=== PATIENT | male | born 1990 | race Caucasian/White ===

== ENCOUNTER 2017-06-08 20:17 | Emergency (ER) | payer SELFPAY | END 2017-06-08 20:35 | disposition left against medical advice (07) | LOC: UCCORT 20:17 | DX: J02.9 Acute pharyngitis, unspecified (principal); Z53.21 Procedure and treatment not carried out due to patient leaving prior to being seen by health care provider ==

== ENCOUNTER 2019-05-31 12:23 | Emergency (ER) | payer OTHER ==
--- OUTSIDE RECORDS SUMMARY | 2019-05-31 12:54 | XMS REPORT | Continuity of Care Document ---
:1990 External Reference #:[id number] Author Name Franchesca Johnson FNP Address [address] [place] [id number] Care Team Providers Name Role Phone Franchesca Johnson [employer] - Nurse Care Team Information Roller Pneumatic [phone] Practitioner Problems Active Problems Provider Date Essential hypertension Lu Schultz M.D. 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 Has never quit in the past Smoking Status Reviewed: 05/27/19 Heavy tobacco smoker (more started smoking age 15 - than 10 cigarettes/day) currently 3/4 PPD. Has never quit in the past Allergies, Adverse Reactions, Alerts Active Allergies Reaction Severity Comments Date Lamotrigine Headache Mild 01/29/2018 Inactive Allergies NKDA 01/04/2015 Medications Active Medications SIG Qnty Indications Ordering Provider Date Adderall one by mouth twice 60tabs F90.0 Elizabeth, 01/29/2018 10mg Tablets a day mdd#2 Franchesca, Reference #: NICA [id number] keep appt 05/27/19 please Lisinopril take one tablet by 90tabs I10 Elizabeth, 12/14/2014 20mg mouth every day Cas Sorensen Medications Administered in Office Medication SIG Qnty Indications Ordering Provider Date PPD Franchesca Johnson FNP 05/27/2019 Injection History of Mumps infection Franchesca Johnson FNP 07/08/2017 Injection Immunizations CPT Code Status Date Vaccine Lot # [id number] Given 06/18/2017 MMR Vaccine, Live, For Subcutaneous Use 26553 Given 06/17/2017 MMR Vaccine, Live, For Subcutaneous Use 07997 Given 04/14/2014 Tdap injection 17793 Given 07/23/2013 flu vaccination Vital Signs Date Vital Result Comment 05/27/2019 3:12pm BP Systolic 166 mmHg BP Diastolic 88 mmHg Body Temperature 98.4 F Heart Rate 108 /min Respiratory Rate 17 /min Height 70.15 inches 5'10.15" Weight 213.00 lb BMI (Body Mass Index) 30.4 kg/m2 BSA (Body Surface Area) 2.15 m2 [place] body weight in kilograms 76 kg O2 % BldC Oximetry 97 % 09/12/2018 11:09am BP Systolic 128 mmHg BP Diastolic 86 mmHg Body Temperature 97.8 F Heart Rate 81 /min Height 71 inches 5'11" Weight 212.25 lb BMI (Body Mass Index) 29.6 kg/m2 BSA (Body Surface Area) 2.16 m2 [place] body weight in kilograms 78 kg O2 % BldC Oximetry 98 % Pain Level 0 Results Description No Information Available Procedures Description No Information Available Medical Devices Description No Information Available Encounters Type Date Location Provider Dx Diagnosis Office Visit 05/27/2019 Family Medicine Elizabeth, Z00.00 Encntr for general 3:[address] Franchesca adult medical exam [employer] w/o abnormal findings I10 Essential (primary) hypertension F90.0 Attn-defct hyperactivity disorder, predom inattentive type Z11.3 Encntr screen for infections w sexl mode of transmiss Assessments Date Code Description Provider 05/27/2019 Z00.00 Encounter for general adult medical Franchesca Johnson FNP examination without abnormal findings 05/27/2019 I10 Essential (primary) hypertension Nai JohnsonNICA diego 05/27/2019 F90.0 Attention-deficit hyperactivity disorder, Franchesca Johnson FNP predominantly inat 05/27/2019 Z11.3 Encounter for screening for infections Nai Johnsonbrandie NICA with a predominantly sexual mode of transmission Plan of Treatment Future Appointment(s):06/26/2019 3:00 pm - Elizabeth NICA Sorensen at [facility]05/29/2019 4:00 pm - Family Nurse at [facility]11/2018 - Franchesca Johnson PEEHowardZ00.00 Encounter for general adult medical examination without abnormal findingsComments:Will need to bet Hepatitis B imms from SchoolPPD placed todayUp to date for vision and dental - recommend continued cleanings every 6 months for dental and Vision exams every 2 yearsDiscussed healthy diet - continue to look for ways to get adequate fruits and vegetables in dietExercise - 150 active minutes a week is recommended for heart health -Follow up:nurse visit 2 days for PDD reading - forms to be done at that time flu shot at pharmacy or make apptfro 2-3 weeks to getI10 Essential (primary) hypertensionComments:not well controlled today - need to take medication regularlyWill have recheck 4-6 weeks and then determine if meds needto be changed or added toFollow up:4 weeks recheck HTNF90.0 Attention- deficit hyperactivity disorder, predominantly inatComments:Stable on current BID dosing of Adderall Random UDT ordered musbfH71.3 Encounter for screening for infections with a predominantly sexual mode of transmissionNew Labs:HIV 1/2 Ag & Abs 4TH Gen W/RFL, Ordered: 05/27/19Urine Chlam/GC/Trichomonas PCR, Ordered: 05/27/19HSV 1/2 Igg/Igm W/RFX, Ordered: 05/27/19Treponema Igg/Igm, Ordered: 05/27/19 Functional Status Functional Condition Comment Date Status None Active Mental Status Description No Information Available Referrals Description No Information Available
[2019-05-31 13:36] VITALS: BP 158/101
--- NOTE | 2019-05-31 14:13 | UC ---
Throat Pain/Nasal Shaka HPI - HPI Summary HPI Summary: Pt presents with c/o left side neck swelling and pain. Pt thinks he has a swollen lymph node. He is concerned that he may have the mumps and he had them last year. - History of Current Complaint Chief Complaint: UCGeneralIllness Stated Complaint: SWOLLEN LYMPH NODE Time Seen by Provider: 05/31/19 14:04 Hx Obtained From: Patient Onset/Duration: Sudden Onset - began this morning, Still Present Severity: Moderate Pain Intensity: 5 Cough: None Associated Signs & Symptoms: Positive: Negative - Epiglottits Risk Factors Epiglottis Risk Factors: Sudden Onset - Allergies/Home Medications Allergies/Adverse Reactions: Allergies Allergy/AdvReac Type Severity Reaction Status Date / Time No Known Allergies Allergy Verified 02/13/14 11:51 Home Medications: Home Medications Dextroamphetamine/Amphetamine [Dextroamp-Amphetamin 10 mg Tab] 10 mg PO DAILY [History Confirmed 05/31/19] Lisinopril TAB* [Prinivil TAB 10 MG*] 10 mg PO DAILY 05/31/19 [History Confirmed 05/31/19] PMH/Surg Hx/FS Hx/Imm Hx Previously Healthy: Yes - Surgical History Surgical History: Yes Surgery Procedure, Year, and Place: PYLORIC STEONSIS REPAIR, T&A - Family History Known Family History: Positive: Cardiac Disease - Social History Occupation: Student Lives: With Family Alcohol Use: None Substance Use Type: None Smoking Status (MU): Light Every Day Tobacco Smoker Type: Cigarettes Amount Used/How Often: 1/2 PPD Have You Smoked in the Last Year: Yes - Immunization History Most Recent Influenza Vaccination: FALL 2012 Vaccination Up to Date: Yes Review of Systems All Other Systems Reviewed And Are Negative: Yes Constitutional: Positive: Negative Skin: Positive: Negative Eyes: Positive: Negative ENT: Positive: Sore Throat - mild Respiratory: Positive: Negative Cardiovascular: Positive: Negative Gastrointestinal: Positive: Negative Genitourinary: Positive: Negative Motor: Positive: Negative Neurovascular: Positive: Negative Musculoskeletal: Positive: Myalgia Neurological: Positive: Negative Psychological: Positive: Negative Is Patient Immunocompromised?: No Physical Exam Triage Information Reviewed: Yes Appearance: Well-Appearing Vital Signs: Initial Vital Signs Temp 98.4 F 05/31/19 13:29 Pulse 77 05/31/19 13:29 Resp 16 05/31/19 13:29 BP 158/101 05/31/19 13:29 Pulse Ox 100 05/31/19 13:29 Vital Signs Reviewed: Yes Eye Exam: Normal ENT Exam: Normal ENT: Positive: Normal ENT inspection Dental Exam: Normal Neck: Positive: Enlarged Nodes @ - left submandibular Respiratory Exam: Normal Cardiovascular Exam: Normal Musculoskeletal Exam: Normal Neurological Exam: Normal Psychological Exam: Normal Skin Exam: Normal Throat Pain/Nasal Course/Dx - Differential Dx/Diagnosis Differential Diagnosis/HQI/PQRI: Mononucleosis, Pharyngitis, Tonsillitis Provider Diagnosis: Lymphadenopathy of head and neck Discharge ED - Sign-Out/Discharge Documenting (check all that apply): Patient Departure All imaging exams completed and their final reports reviewed: No Studies - Discharge Plan Condition: Stable Disposition: HOME Patient Education Materials: Lymphadenopathy (ED), Safe Use of NSAIDs (ED) Referrals: Nai Johnson NP [Primary Care Provider] - If Needed - Billing Disposition and Condition Condition: STABLE Disposition: Home
== END 2019-05-31 14:22 | disposition home or self-care (01) ==
LOC: UCCORT 12:23
DX: R59.1 Generalized enlarged lymph nodes (principal); F17.210 Nicotine dependence, cigarettes, uncomplicated
CPT/HCPCS: 99211; G0463